=== PATIENT | male | born 1960 | race African-American/Black ===

== ENCOUNTER 2021-08-08 22:14 | Observation (INO) | payer OTHER ==
[2021-08-08 22:24] VITALS: BMI 25.3
[2021-08-08 23:12] LABS: BASO % 0.5 % (0-2.0); EOS % 0.7 % (0-4.5); HEMATOCRIT 38.6 % (35.4-49); HEMOGLOBIN 12.1 GM/dL (11.7-16.9); LYMPH % 28.3 % (8-40); MCH 22.4 pg (25.7-33.7); MCHC 31.4 g/dl (32.0-35.9); MEAN CELL VOLUME 71.4 fl (80-96); MEAN PLT VOLUME 8.5 fl (7.5-11.1); MONO % 9.4 % (3.8-10.2); NEUT % 61.1 % (42.8-82.8); PLATELET COUNT 212 10^3/uL (134-434); RBC 5.41 M/mm3 (4.00-5.60); RDW 16.1 % (11.9-15.9)
[2021-08-08 23:20] LABS: INR 1.16 (0.83-1.09); PROTHROMBIN TIME (PATIENT) 13.4 SEC (9.7-13.0)
[2021-08-08 23:22] LABS: ACTIVATED PTT 39.8 SECONDS (25.2-36.5)
[2021-08-08] MEDS ORDERED: ALBUTEROL SO4 2.5/IPRATROPIUM 0.5 INH SOL 3 ML VIAL.NEB. NEB ONE (23:55)
[2021-08-08] MEDS ORDERED: methylPREDNISolone NA SUCC 125 MG/2 ML VIAL IVPB ONE (23:56)
[2021-08-09 00:22] LABS: BILIRUBIN,TOTAL 0.7 mg/dL (0.2-1); BLOOD UREA NITROGEN 20.8 mg/dL (7-18); CALCIUM 9.5 mg/dL (8.5-10.1); CREATININE 1.2 mg/dL (0.55-1.3); TOT PROT 7.2 g/dl (6.4-8.2)
[2021-08-09] MEDS ORDERED: ALBUTEROL SO4 2.5/IPRATROPIUM 0.5 INH SOL 3 ML VIAL.NEB. NEB ONE (01:14)
[2021-08-09] MEDS ORDERED: methylPREDNISolone NA SUCC 125 MG/2 ML VIAL ONE (01:15)
[2021-08-09] MEDS ORDERED: ACETAMINOPHEN 325 MG TABLET (FP) PO PRN (02:22)
[2021-08-09] MEDS ORDERED: ALBUTEROL SO4 0.083% IH SOL 2.5 MG/3 ML VIAL.NEB. NEB PRN (02:22)
[2021-08-09] MEDS ORDERED: POLYETHYLENE GLYCOL (HEALTHYLAX) 3350 17 GM PACKET PO PRN (02:22)
[2021-08-09] MEDS ORDERED: ALBUTEROL SO4 HFA INHALER IH PRN (07:41)
[2021-08-09] MEDS ORDERED: OCULAR LUBRICANT OPHTHALMIC OINTMENT 7 GM TUBE OD PRN (07:45)
[2021-08-09] MEDS ORDERED: ONDANSETRON *ODT* 4 MG TABLET SL PRN (07:50)
[2021-08-09] MEDS ORDERED: guaiFENesin 200 MG/10 ML 10 ML UNIT-DOSE CUPS PO PRN (07:51)
[2021-08-09] MEDS ORDERED: ZINC SULFATE 220 MG TABLET PO SCH (10:00)
[2021-08-09] MEDS: ASPIRIN COATED 81 MG TABLET.EC PO SCH (11:10)
[2021-08-09] MEDS: methylPREDNISolone NA SUCC 40 MG/1 ML VIAL IVPUSH SCH ×2 (11:10→17:48)
[2021-08-09] MEDS: FOLIC ACID 1 MG TABLET (FP) PO SCH (11:10)
[2021-08-09] MEDS: QUEtiapine FUMARATE 50 MG TABLET PO SCH ×2 (11:10→21:18)
[2021-08-09] MEDS: levETIRAcetam 500 MG TABLET (FP) PO SCH ×2 (11:10→21:18)
[2021-08-09] MEDS: CHOLECALCIFEROL (VIT D3) 1,000 UNIT (25 MCG) TABLET PO SCH (11:10)
[2021-08-09] MEDS: BRIMONIDINE TARTRATE 0.2% OPHTHALMIC 5 ML BOTTLE OD SCH (11:12)
[2021-08-09] MEDS: FLUTICASONE/SALMETEROL 100 MCG/50 MCG DISKUS IH SCH ×2 (11:12→21:17)
[2021-08-09] MEDS: ARTIFICIAL TEARS (POLYVINYL ALCOHOL) OPTH DROPS OU SCH ×4 (11:13→21:18)
[2021-08-09 12:59] LABS: N-TERMINAL BNP 21.8 pg/ml (5-125)
[2021-08-09] MEDS: GABAPENTIN 100 MG CAPSULE PO SCH ×2 (14:04→21:18)
[2021-08-09] MEDS ORDERED: MONTELUKAST NA 10 MG TABLET PO SCH (22:00)
[2021-08-09] MEDS ORDERED: LATANOPROST 0.005% OPHTH SOLN 2.5ML BOTTLE OD SCH (22:00)
[2021-08-09] MEDS ORDERED: ZINC SULFATE 220 MG CAPSULE (FP) PO SCH (23:49)
[2021-08-10] MEDS: methylPREDNISolone NA SUCC 40 MG/1 ML VIAL IVPUSH SCH ×2 (01:14→09:01)
[2021-08-10] MEDS: GABAPENTIN 100 MG CAPSULE PO SCH ×2 (05:47→15:07)
[2021-08-10] MEDS: CHOLECALCIFEROL (VIT D3) 1,000 UNIT (25 MCG) TABLET PO SCH (09:01)
[2021-08-10] MEDS: levETIRAcetam 500 MG TABLET (FP) PO SCH (09:01)
[2021-08-10] MEDS: ARTIFICIAL TEARS (POLYVINYL ALCOHOL) OPTH DROPS OU SCH ×2 (09:01→15:07)
[2021-08-10] MEDS: FOLIC ACID 1 MG TABLET (FP) PO SCH (09:01)
[2021-08-10] MEDS: ASPIRIN COATED 81 MG TABLET.EC PO SCH (09:01)
[2021-08-10] MEDS: QUEtiapine FUMARATE 50 MG TABLET PO SCH (09:01)
[2021-08-10] MEDS: BRIMONIDINE TARTRATE 0.2% OPHTHALMIC 5 ML BOTTLE OD SCH (09:02)
[2021-08-10] MEDS: FLUTICASONE/SALMETEROL 100 MCG/50 MCG DISKUS IH SCH (09:02)
[2021-08-10 09:04] LABS: CALCIUM 9.2 mg/dL (8.5-10.1)
[2021-08-10 09:07] LABS: BLOOD UREA NITROGEN 18.7 mg/dL (7-18)
[2021-08-10 09:08] LABS: CREATININE 0.9 mg/dL (0.55-1.3)
[2021-08-10 09:20] LABS: BASO % 0.1 % (0-2.0); HEMATOCRIT 34.9 % (35.4-49); HEMOGLOBIN 11.5 GM/dL (11.7-16.9); LYMPH % 10.9 % (8-40); MCH 23.3 pg (25.7-33.7); MCHC 32.8 g/dl (32.0-35.9); MEAN CELL VOLUME 70.9 fl (80-96); MEAN PLT VOLUME 8.6 fl (7.5-11.1); MONO % 4.1 % (3.8-10.2); NEUT % 84.9 % (42.8-82.8); PLATELET COUNT 211 10^3/uL (134-434); RBC 4.93 M/mm3 (4.00-5.60); WHITE BLOOD COUNT 10.8 K/mm3 (4.0-10.0)
[2021-08-10 14:59] VITALS: BP 124/72; PULSE 100; TEMP 98.9
== END 2021-08-10 16:57 ==
LOC: JER 22:14 → JERBED 08-09 01:08 → J7W 08-09 10:15
PROVIDERS: ADMIT Hospitalist; ATTEND Internal Medicine
PROC: 3E0F7GC Introduction of Other Therapeutic Substance into Respiratory Tract, Via Natural or Artificial Opening (ICD-10-PCS; principal; 2021-08-09)
PROC: 3E033NZ Introduction of Analgesics, Hypnotics, Sedatives into Peripheral Vein, Percutaneous Approach (ICD-10-PCS; 2021-08-09)
DX: Z21 Asymptomatic human immunodeficiency virus [HIV] infection status (principal); R56.9 Unspecified convulsions; R07.9 Chest pain, unspecified; J45.909 Unspecified asthma, uncomplicated; H54.8 Legal blindness, as defined in USA; Z95.0 Presence of cardiac pacemaker; H54.7 Unspecified visual loss; Z87.891 Personal history of nicotine dependence; J45.901 Unspecified asthma with (acute) exacerbation; R29.6 Repeated falls; R06.02 Shortness of breath; B07.9 Viral wart, unspecified
CPT/HCPCS: 36415; 70450-TC; 71045-TC-FY; 72125-TC; 80048; 80053; 83690; 83735; 83880; 84484; 85025; 85610; 85730; 93005; 93010; 94640; 96375; 99285-25; C9803; G0378; U0003; U0005

== ENCOUNTER 2021-10-09 17:44 | Emergency (ER) | payer OTHER ==
[2021-10-09 18:09] VITALS: BMI 25.3
[2021-10-09 18:26] LABS: BASO % 0.5 % (0-2.0); EOS % 0.8 % (0-4.5); HEMATOCRIT 40.2 % (35.4-49); HEMOGLOBIN 12.4 GM/dL (11.7-16.9); LYMPH % 29.9 % (8-40); MCH 22.1 pg (25.7-33.7); MCHC 30.8 g/dl (32.0-35.9); MEAN CELL VOLUME 71.7 fl (80-96); MEAN PLT VOLUME 8.3 fl (7.5-11.1); MONO % 9.7 % (3.8-10.2); NEUT % 59.1 % (42.8-82.8); PLATELET COUNT 206 10^3/uL (134-434); RBC 5.62 M/mm3 (4.00-5.60); RDW 14.9 % (11.9-15.9); WHITE BLOOD COUNT 5.3 K/mm3 (4.0-10.0)
[2021-10-09 18:44] LABS: ALBUMIN 3.4 g/dl (3.4-5.0); BLOOD UREA NITROGEN 11.8 mg/dL (7-18); CALCIUM 8.5 mg/dL (8.5-10.1)
[2021-10-09 18:47] LABS: CREATININE 0.7 mg/dL (0.55-1.3)
[2021-10-09 18:49] LABS: BILIRUBIN,TOTAL 0.5 mg/dL (0.2-1)
[2021-10-10 00:50] VITALS: BP 121/91; PULSE 74; TEMP 98.7
== END 2021-10-10 01:06 ==
LOC: JER 17:44
DX: R07.9 Chest pain, unspecified (principal)
CPT/HCPCS: 0241U-QW; 36415; 71045-TC-FY; 80053; 84484; 85025; 87807; 93005; 93010; 99285-25; C9803-CS; U0003; U0005

== ENCOUNTER 2022-02-23 22:53 | Observation (INO) | payer OTHER ==
[2022-02-23 23:42] VITALS: BMI 29.5
[2022-02-24 02:45] LABS: BASO % 0.9 % (0-2.0); EOS % 2.1 % (0-4.5); HEMOGLOBIN 11.6 GM/dL (11.7-16.9); LYMPH % 33.1 % (8-40); MCH 22.8 pg (25.7-33.7); MCHC 32.1 g/dl (32.0-35.9); MEAN CELL VOLUME 70.8 fl (80-96); MONO % 9.9 % (3.8-10.2); PLATELET COUNT 184 10^3/uL (134-434); RBC 5.09 M/mm3 (4.00-5.60); RDW 14.6 % (11.9-15.9); WHITE BLOOD COUNT 5.9 K/mm3 (4.0-10.0)
[2022-02-24 02:53] LABS: INR 1.11 (0.83-1.09); PROTHROMBIN TIME (PATIENT) 12.8 SEC (9.7-13.0)
[2022-02-24 02:55] LABS: ACTIVATED PTT 40.7 SECONDS (25.2-36.5)
[2022-02-24 03:18] LABS: CALCIUM 9.1 mg/dL (8.5-10.1)
[2022-02-24 03:19] LABS: ALBUMIN 3.6 g/dl (3.4-5.0); BLOOD UREA NITROGEN 16.6 mg/dL (7-18)
[2022-02-24 03:23] LABS: TOT PROT 6.4 g/dl (6.4-8.2)
[2022-02-24 03:24] LABS: BILIRUBIN,TOTAL 0.5 mg/dL (0.2-1)
[2022-02-24 07:57] VITALS: TEMP 98.7
[2022-02-24] MEDS ORDERED: ACETAMINOPHEN 325 MG TABLET (FP) PO PRN (09:04)
[2022-02-24] MEDS ORDERED: ONDANSETRON 4 MG TABLET PO PRN (09:16)
[2022-02-24] MEDS ORDERED: OCULAR LUBRICANT OPHTHALMIC OINTMENT 7 GM TUBE OD SCH (10:00)
[2022-02-24] MEDS ORDERED: BUDESONIDE/FORMETEROL FUMARATE 80/4.5 mcg INHALER IH SCH (10:00)
[2022-02-24] MEDS ORDERED: BRIMONIDINE TARTRATE 0.2% OPHTHALMIC 5 ML BOTTLE OD SCH (10:00)
[2022-02-24] MEDS ORDERED: levETIRAcetam 250 MG TABLET PO SCH (10:00)
[2022-02-24] MEDS ORDERED: EMTRICITAB/RILPIVIRI/TENOF ALA (ODEFSEY) TABLET PO SCH (10:00)
[2022-02-24] MEDS ORDERED: ENOXAPARIN NA (PORCINE) 40 MG/0.4 ML DISP.SYRIN SQ SCH (10:00)
[2022-02-24] MEDS ORDERED: TIMOLOL 0.5% OPHTHALMIC SOL 5 ML BOTTLE OD SCH (10:00)
[2022-02-24] MEDS ORDERED: ENOXAPARIN NA (PORCINE) 40 MG/0.4 ML DISP.SYRIN SQ ONE (10:32)
[2022-02-24] MEDS ORDERED: LIDOCAINE 5% TOPICAL PATCH TP SCH (11:15)
[2022-02-24] MEDS ORDERED: LIDOCAINE 5% TOPICAL PATCH ONE (11:55)
[2022-02-24] MEDS ORDERED: PATIENT'S OWN MEDICATION (NON-FORMULARY) (Brimonidine Tartrate/Timolol [Brimonidine-Timolo OD SCH (14:00)
[2022-02-24] MEDS ORDERED: GABAPENTIN 100 MG CAPSULE PO SCH (14:00)
[2022-02-24 15:04] VITALS: BP 124/83; PULSE 66; RESP 18
[2022-02-24] MEDS ORDERED: LIDOCAINE PATCH REMOVAL MC SCH (22:00)
[2022-02-24] MEDS ORDERED: MONTELUKAST NA 10 MG TABLET PO SCH (22:00)
[2022-02-24] MEDS ORDERED: QUEtiapine FUMARATE 25 MG TABLET PO SCH (22:00)
[2022-02-24] MEDS ORDERED: LATANOPROST 0.005% OPHTH SOLN 2.5ML BOTTLE OD SCH (22:00)
== END 2022-02-24 15:30 | disposition home or self-care (01) ==
LOC: JER 22:53 → JERBED 02-24 05:16
PROVIDERS: ADMIT Internal Medicine; ATTEND Internal Medicine
PROC: 3E023GC Introduction of Other Therapeutic Substance into Muscle, Percutaneous Approach (ICD-10-PCS; principal; 2022-02-24)
DX: R07.9 Chest pain, unspecified (principal); B20 Human immunodeficiency virus [HIV] disease; R56.9 Unspecified convulsions; D64.9 Anemia, unspecified; F20.9 Schizophrenia, unspecified; J45.909 Unspecified asthma, uncomplicated; G50.0 Trigeminal neuralgia; H54.7 Unspecified visual loss; W18.39XA Other fall on same level, initial encounter; Y93.89 Activity, other specified; Y92.89 Other specified places as the place of occurrence of the external cause
CPT/HCPCS: 0241U-QW; 36415; 70450-TC; 71045-TC-FY; 72125-TC; 72170-TC-FY; 80053; 80061; 83036; 84439; 84443; 84484; 85025; 85610; 85730; 86850; 86900; 86901; 93005; 93010; 96372; 99285-25; G0378

== ENCOUNTER 2022-10-05 21:18 | Emergency (ER) | payer OTHER ==
[2022-10-05 21:42] VITALS: BP 127/92; PULSE 92; RESP 20; TEMP 98.1; BMI 34.0
[2022-10-05 22:13] LABS: BASO % 0.7 % (0-2.0); EOS % 0.8 % (0-4.5); HEMATOCRIT 41.8 % (35.4-49); HEMOGLOBIN 13.4 GM/dL (11.7-16.9); LYMPH % 43.7 % (8-40); MCH 22.4 pg (25.7-33.7); MCHC 32.1 g/dl (32.0-35.9); MEAN CELL VOLUME 69.9 fl (80-96); MEAN PLT VOLUME 8.6 fl (7.5-11.1); MONO % 9.4 % (3.8-10.2); NEUT % 45.4 % (42.8-82.8); PLATELET COUNT 239 10^3/uL (134-434); RBC 5.98 M/mm3 (4.00-5.60); RDW 14.8 % (11.9-15.9); WHITE BLOOD COUNT 9.1 K/mm3 (4.0-10.0)
[2022-10-05 22:32] LABS: POTASSIUM 4.4 mmol/L (3.5-5.1)
[2022-10-05 22:34] LABS: ALBUMIN 4.1 g/dl (3.4-5.0); CALCIUM 9.8 mg/dL (8.5-10.1)
[2022-10-05 22:35] LABS: MAGNESIUM 2.1 mg/dL (1.8-2.4)
[2022-10-05 22:39] LABS: PHOSPHOROUS 1.9 mg/dL (2.5-4.9); TOT PROT 7.8 g/dl (6.4-8.2)
[2022-10-05 22:52] LABS: BILIRUBIN,TOTAL 0.7 mg/dL (0.2-1)
[2022-10-05] MEDS ORDERED: NAPH,MB-DB/K PH,MBDB POWDER PACKET PO ONE (23:19)
[2022-10-05] MEDS ORDERED: NAPH,MB-DB/K PH,MBDB POWDER PACKET ONE (23:23)
== END 2022-10-05 23:42 | disposition home or self-care (01) ==
LOC: JER 21:18
DX: R05.1 Acute cough (principal); Z20.822 Contact with and (suspected) exposure to COVID-19
CPT/HCPCS: 36415; 71045-TC-FY; 80053; 83735; 84100; 84484; 85025; 93005; 93010; 99285-25; C9803-CS; U0003; U0005

== ENCOUNTER 2022-12-23 16:54 | Inpatient (IN) | payer OTHER ==
[2022-12-23 17:51] LABS: BASO % 0.6 % (0-2.0); EOS % 0.9 % (0-4.5); HEMATOCRIT 41.1 % (35.4-49); HEMOGLOBIN 13.1 GM/dL (11.7-16.9); LYMPH % 39.7 % (8-40); MCHC 31.9 g/dl (32.0-35.9); MEAN CELL VOLUME 68.9 fl (80-96); MEAN PLT VOLUME 8.5 fl (7.5-11.1); MONO % 11.6 % (3.8-10.2); NEUT % 47.2 % (42.8-82.8); PLATELET COUNT 221 10^3/uL (134-434); RBC 5.96 M/mm3 (4.00-5.60); RDW 15.4 % (11.9-15.9); WHITE BLOOD COUNT 5.8 K/mm3 (4.0-10.0)
[2022-12-23 18:09] LABS: POTASSIUM 4.6 mmol/L (3.5-5.1)
[2022-12-23 18:11] LABS: ALBUMIN 3.8 g/dl (3.4-5.0); BLOOD UREA NITROGEN 16.3 mg/dL (7-18); CALCIUM 9.4 mg/dL (8.5-10.1)
[2022-12-23 18:16] LABS: BILIRUBIN,TOTAL 0.4 mg/dL (0.2-1); TOT PROT 7.4 g/dl (6.4-8.2)
[2022-12-23 18:40] LABS: ANISOCYTOSIS 2+; MACROCYTOSIS 0; OVALOCYTE 1+; TEAR DROP CELLS 1+
[2022-12-23] MEDS ORDERED: ALBUTEROL SO4 HFA INHALER IH PRN (21:03)
[2022-12-23] MEDS ORDERED: levETIRAcetam 250 MG TABLET PO SCH (22:00)
[2022-12-23] MEDS: LATANOPROST 0.005% OPHTH SOLN 2.5ML BOTTLE OU SCH (23:30)
[2022-12-23] MEDS: BRIMONIDINE TARTRATE 0.15% OPHTHALMIC 5 ML BOTTLE OU SCH (23:31)
[2022-12-23] MEDS: BUDESONIDE/FORMETEROL FUMARATE 80/4.5 mcg INHALER IH SCH (23:31)
[2022-12-24] MEDS: BRIMONIDINE TARTRATE 0.15% OPHTHALMIC 5 ML BOTTLE OU SCH ×3 (06:26→21:48)
[2022-12-24] MEDS: EMTRICITAB/RILPIVIRI/TENOF ALA (ODEFSEY) TABLET PO SCH (09:40)
[2022-12-24] MEDS: MONTELUKAST NA 10 MG TABLET PO SCH (09:40)
[2022-12-24] MEDS: ENOXAPARIN NA (PORCINE) 40 MG/0.4 ML DISP.SYRIN SQ SCH (09:40)
[2022-12-24] MEDS: ASPIRIN COATED 81 MG TABLET.EC PO SCH (09:40)
[2022-12-24] MEDS: BUDESONIDE/FORMETEROL FUMARATE 80/4.5 mcg INHALER IH SCH ×2 (09:41→21:48)
[2022-12-24] MEDS: KETOCONAZOLE 2% CREAM - 60GM TUBE TP SCH (14:09)
[2022-12-24] MEDS: ATORVASTATIN CA 20 MG TABLET (FP) PO SCH (21:47)
[2022-12-24] MEDS: DOCUSATE SODIUM 100 MG CAPSULE (FP) PO SCH (21:47)
[2022-12-24] MEDS: LATANOPROST 0.005% OPHTH SOLN 2.5ML BOTTLE OU SCH (21:48)
[2022-12-25] MEDS: BRIMONIDINE TARTRATE 0.15% OPHTHALMIC 5 ML BOTTLE OU SCH ×3 (06:03→21:58)
[2022-12-25 09:32] LABS: BASO % 0.5 % (0-2.0); EOS % 1.5 % (0-4.5); HEMATOCRIT 40.9 % (35.4-49); HEMOGLOBIN 12.4 GM/dL (11.7-16.9); LYMPH % 42.8 % (8-40); MCH 21.6 pg (25.7-33.7); MCHC 30.4 g/dl (32.0-35.9); MEAN CELL VOLUME 70.9 fl (80-96); MEAN PLT VOLUME 9.4 fl (7.5-11.1); MONO % 9.6 % (3.8-10.2); NEUT % 45.6 % (42.8-82.8); PLATELET COUNT 208 10^3/uL (134-434); RBC 5.77 M/mm3 (4.00-5.60); RDW 14.6 % (11.9-15.9); WHITE BLOOD COUNT 5.7 K/mm3 (4.0-10.0)
[2022-12-25 09:51] LABS: POTASSIUM 4.5 mmol/L (3.5-5.1)
[2022-12-25 09:55] LABS: CALCIUM 8.9 mg/dL (8.5-10.1)
[2022-12-25 09:56] LABS: ALBUMIN 3.4 g/dl (3.4-5.0); BLOOD UREA NITROGEN 11.5 mg/dL (7-18); MAGNESIUM 2.2 mg/dL (1.8-2.4)
[2022-12-25 10:00] LABS: BILIRUBIN,TOTAL 0.7 mg/dL (0.2-1)
[2022-12-25 10:01] LABS: TOT PROT 6.3 g/dl (6.4-8.2)
[2022-12-25] MEDS: MONTELUKAST NA 10 MG TABLET PO SCH (10:09)
[2022-12-25] MEDS: ASPIRIN COATED 81 MG TABLET.EC PO SCH (10:10)
[2022-12-25] MEDS: DOCUSATE SODIUM 100 MG CAPSULE (FP) PO SCH ×2 (10:10→21:57)
[2022-12-25] MEDS: ENOXAPARIN NA (PORCINE) 40 MG/0.4 ML DISP.SYRIN SQ SCH (10:11)
[2022-12-25] MEDS: EMTRICITAB/RILPIVIRI/TENOF ALA (ODEFSEY) TABLET PO SCH (10:19)
[2022-12-25] MEDS: BUDESONIDE/FORMETEROL FUMARATE 80/4.5 mcg INHALER IH SCH ×2 (10:22→21:58)
[2022-12-25] MEDS: KETOCONAZOLE 2% CREAM - 60GM TUBE TP SCH (10:22)
[2022-12-25 15:13] VITALS: BMI 29.2
[2022-12-25 21:57] VITALS: RESP 18
[2022-12-25] MEDS: ATORVASTATIN CA 20 MG TABLET (FP) PO SCH (21:57)
[2022-12-25] MEDS: LATANOPROST 0.005% OPHTH SOLN 2.5ML BOTTLE OU SCH (21:58)
[2022-12-26] MEDS: BRIMONIDINE TARTRATE 0.15% OPHTHALMIC 5 ML BOTTLE OU SCH ×2 (05:43→13:59)
[2022-12-26] MEDS: MONTELUKAST NA 10 MG TABLET PO SCH (10:13)
[2022-12-26] MEDS: DOCUSATE SODIUM 100 MG CAPSULE (FP) PO SCH (10:13)
[2022-12-26] MEDS: ASPIRIN COATED 81 MG TABLET.EC PO SCH (10:13)
[2022-12-26] MEDS: BUDESONIDE/FORMETEROL FUMARATE 80/4.5 mcg INHALER IH SCH (10:14)
[2022-12-26] MEDS: ENOXAPARIN NA (PORCINE) 40 MG/0.4 ML DISP.SYRIN SQ SCH (10:14)
[2022-12-26] MEDS: KETOCONAZOLE 2% CREAM - 60GM TUBE TP SCH (10:14)
[2022-12-26] MEDS: EMTRICITAB/RILPIVIRI/TENOF ALA (ODEFSEY) TABLET PO SCH (10:15)
[2022-12-26 10:18] LABS: BASO % 0.3 % (0-2.0); EOS % 1.7 % (0-4.5); HEMATOCRIT 42.5 % (35.4-49); HEMOGLOBIN 13.4 GM/dL (11.7-16.9); MCH 22.2 pg (25.7-33.7); MCHC 31.6 g/dl (32.0-35.9); MEAN CELL VOLUME 70.1 fl (80-96); MEAN PLT VOLUME 9.2 fl (7.5-11.1); MONO % 10.2 % (3.8-10.2); NEUT % 41.8 % (42.8-82.8); PLATELET COUNT 226 10^3/uL (134-434); RBC 6.07 M/mm3 (4.00-5.60); RDW 14.8 % (11.9-15.9); WHITE BLOOD COUNT 6.1 K/mm3 (4.0-10.0)
[2022-12-26 10:30] LABS: POTASSIUM 4.3 mmol/L (3.5-5.1)
[2022-12-26 10:36] LABS: ALBUMIN 3.6 g/dl (3.4-5.0); BLOOD UREA NITROGEN 11.3 mg/dL (7-18); CALCIUM 9.1 mg/dL (8.5-10.1); MAGNESIUM 2.2 mg/dL (1.8-2.4)
[2022-12-26 10:39] LABS: CREATININE 0.9 mg/dL (0.55-1.3)
[2022-12-26 10:41] LABS: BILIRUBIN,TOTAL 0.9 mg/dL (0.2-1); TOT PROT 6.9 g/dl (6.4-8.2)
[2022-12-26] MEDS ORDERED: BISACODYL 10 MG SUPP.RECT PR PRN (12:30)
[2022-12-26] MEDS ORDERED: LACTULOSE 20 GM/30 ML UDC (FOR ORAL USE ONLY) PO ONE (12:30)
[2022-12-26 15:22] VITALS: BP 114/80; PULSE 67; TEMP 97.8
== END 2022-12-26 19:10 | DRG 948 ==
LOC: JER 16:54 → JERBED 20:50 → J8W 22:46 → OBSVTOIN 22:59
PROVIDERS: ADMIT Internal Medicine; ATTEND Nurse Practitioner Acute Care
DX: R53.1 Weakness (principal); R13.10 Dysphagia, unspecified; G40.909 Epilepsy, unspecified, not intractable, without status epilepticus; H54.8 Legal blindness, as defined in USA; Z21 Asymptomatic human immunodeficiency virus [HIV] infection status; G50.0 Trigeminal neuralgia; F31.9 Bipolar disorder, unspecified; F20.9 Schizophrenia, unspecified; J45.909 Unspecified asthma, uncomplicated; G81.94 Hemiplegia, unspecified affecting left nondominant side; Z99.3 Dependence on wheelchair
CPT/HCPCS: 36415; 71045-TC-FY; 74230-TC-FY; 80053; 83735; 85025; 87635; 92611-GN; 93005; 93010; 97116-GP; 97162-GP; 99285-25; G0378

== ENCOUNTER 2023-10-03 11:04 | Emergency (ER) | payer OTHER ==
[2023-10-03] MEDS ORDERED: ACETAMINOPHEN 325 MG TABLET (FP) ONE (12:42)
[2023-10-03] MEDS: ACETAMINOPHEN 325 MG TABLET (FP) PO ONE (12:45)
[2023-10-03 12:51] VITALS: BP 119/85; PULSE 67; RESP 18; TEMP 98; BMI 26.5
== END 2023-10-03 20:37 | disposition home or self-care (01) ==
LOC: JER 11:04
DX: S01.81XA Laceration without foreign body of other part of head, initial encounter (principal); M25.512 Pain in left shoulder; W19.XXXA Unspecified fall, initial encounter
CPT/HCPCS: 70450-TC; 70486-TC; 72125-TC; 99284-25